=== PATIENT | male | born 1970 | race Two or more races ===

== ENCOUNTER 2024-12-30 21:08 | Emergency (ER) | payer SELFPAY ==
[~2024-12-30] VITALS: Ht 170.2 cm; Wt 73.0 kg
[2024-12-30 21:11] VITALS: O2SAT 100
[2024-12-31] MEDS ORDERED: HYDR-3735 MT (00:55)
[2024-12-31 01:30] VITALS: BP 125/78; PULSE 95; RESP 16; TEMP 36.8; O2SAT 97
== END 2024-12-31 01:42 | disposition home or self-care (01) ==
LOC: ER 21:08
DX: R06.02 Shortness of breath (principal); F41.9 Anxiety disorder, unspecified
CPT/HCPCS: 71045; 93005; 99283